=== PATIENT | female | born 1970 | race Caucasian/White ===

== ENCOUNTER → 2021-04-16 | Outpatient (CLI) | payer OTHER ==
[2018-03-25 02:30] VITALS: BP 146/57
[~2021-04-16] MED LIST: OMEP20TA63 PO; TAMS0.4C97 PO; VENL150C PO
--- NOTE | 2021-04-16 17:52 | RAD ---
XR HIP (WITH OR WITHOUT PELVIS) 1 VIEW, XR LUMBAR SPINE 2-3V History: Low back and bilateral hip pain. Comparison: CT abdomen and pelvis 03/24/2018 Technique: 3 views of the lumbar spine. AP view pelvis. Frog-leg lateral views of the bilateral hips. Findings: There are 5 nonrib-bearing lumbar vertebral segments. Normal alignment. Normal vertebral body heights . No evidence of fracture. Multilevel lumbar facet hypertrophy increasing distally. Mild degenerative changes of the spinous processes at L3-L5 consistent with [place]'s disease. Mild disc space narrowi ng L3-L4, moderate at L4-L5 and severe L5-S1. Minimal degenerative changes of the bilateral femoral acetabular joints. No acute osseous abnormality . The sacroiliac joints and pubic symphysis are unremarkable. The pubic rami are intact. Multiple pel janki phleboliths. Impression: 1. Lower lumbar spondylosis. No acute lumbar spine findings. 2. Minimal degenerative changes the bilateral hips. No acute osseous abnormality. Electronically signed by: Rosas Lombardo MD (04/16/2021 5:49 PM) [id number]
== END ==
LOC: RAD 08:43
PROVIDERS: ATTEND Anesthesiology Pain Medicine
DX: Z02.71 Encounter for disability determination (principal); M16.0 Bilateral primary osteoarthritis of hip; M47.816 Spondylosis without myelopathy or radiculopathy, lumbar region; M48.07 Spinal stenosis, lumbosacral region; I87.8 Other specified disorders of veins
CPT/HCPCS: 72100; 73521